=== PATIENT | male | born 1990 | race Caucasian/White ===

== ENCOUNTER 2018-03-30 07:57 | Day surgery (SDC) | payer OTHER ==
[2018-03-30 08:22] VITALS: TEMP 98.5; BMI 16.4
[2018-03-30] MEDS ORDERED: PROPOFOL 20 ML ONE ×2 (08:37)
[2018-03-30 09:10] VITALS: PULSE 54
[2018-03-30 10:05] VITALS: BP 95/66
--- NOTE | 2018-04-03 11:35 | PATH ---
Surgical Pathology Report Patient Name: SHARYN ALVA [facility]. Rec. #: [id number] /Age/Gender: 1990 (Age: 27) / M Account: [id number] Location: U-ENDOSCOPY Taken: 03/30/2018 Received: 03/30/2018 Reported: 04/03/2018 Physicians: Donavan Duffy M.D. Specimen(s) Received A: BX DUODENUM B: BX ANTRUM Clinical History Weight loss, abdominal pain Postoperative diagnosis: Gastritis Final Diagnosis A. DUODENUM, BIOPSY: DUODENAL MUCOSA WITH NO PATHOLOGIC FINDINGS. B. ANTRUM, BIOPSY: MILD CHRONIC GASTRITIS. IMMUNOSTAIN IS NEGATIVE FOR H. PYLORI ORGANISMS. Electronically Signed Ladan Wang M.D. Gross Description A. Received in formalin, labeled "duodenum" are 2 alan, irregular portions of soft tissue averaging 0.4 cm. in greatest dimension. The specimens are submitted in toto in one cassette. B. Received in formalin, labeled "antrum" are 2 alan, irregular portions of soft tissue measuring 0.3 and 0.4 cm. in greatest dimension. The specimens are submitted in toto in one cassette. DL03/30/2018 saudi03/30/2018
== END 2018-03-30 09:45 | disposition home or self-care (01) ==
LOC: FASU-ENDO 07:57
PROVIDERS: ATTEND Internal Medicine Gastroenterology
PROC: 0DB68ZX Excision of Stomach, Via Natural or Artificial Opening Endoscopic, Diagnostic (ICD-10-PCS; 2018-03-30)
PROC: 0DB98ZX Excision of Duodenum, Via Natural or Artificial Opening Endoscopic, Diagnostic (ICD-10-PCS; principal; 2018-03-30 08:41)
DX: K29.50 Unspecified chronic gastritis without bleeding (principal); R10.13 Epigastric pain; R63.4 Abnormal weight loss
CPT/HCPCS: 88305-TC; 88342-TC

== ENCOUNTER 2021-01-26 06:24 | Day surgery (SDC) | payer OTHER ==
[2021-01-23 10:27] VITALS: BMI 22.4
[2021-01-26] MEDS ORDERED: OXYMETAZOLINE 0.05% NASAL SOLUTION 15 ML BOTTLE NS ONE (07:16)
[2021-01-26] MEDS ORDERED: BACITRACIN 15 GM TUBE TOPICAL OINTMENT ONE (07:17)
[2021-01-26] MEDS ORDERED: NITROGLYCERIN 2% OINTMENT - 1GM PACKET TD ONE (07:17)
[2021-01-26] MEDS ORDERED: LIDOCAINE 1%/EPI 1:100000 (20 ML MULTI DOSE VIAL) ONE (07:19)
[2021-01-26] MEDS ORDERED: MIDAZOLAM HCL 2 MG/2 ML SINGLE DOSE VIAL ONE ×2 (07:57)
[2021-01-26] MEDS ORDERED: PROPOFOL 20 ML ONE ×2 (07:58→11:53)
[2021-01-26] MEDS ORDERED: ROCURONIUM BROMIDE 50 MG/5 ML SYRINGE ONE ×2 (07:58→09:37)
[2021-01-26] MEDS ORDERED: NEOSTIGMINE METHYLSULFATE 0.5 MG/1 ML - 10 ML MDV ONE (11:56)
[2021-01-26] MEDS ORDERED: oxyCODONE HCL 5 MG TABLET PO PRN ×3 (12:14→12:16)
[2021-01-26] MEDS ORDERED: ONDANSETRON 4 MG/2 ML VIAL IVPUSH PRN (12:14)
[2021-01-26] MEDS ORDERED: LACTATED RINGERS SOLUTION 1,000 ML IV SCH ×2 (12:15→12:30)
[2021-01-26] MEDS ORDERED: ONDANSETRON 4 MG/2 ML VIAL IVPB PRN (12:16)
[2021-01-26] MEDS ORDERED: oxyCODONE HCL 5 MG TABLET ONE (13:13)
[2021-01-26 14:44] VITALS: BP 132/82; PULSE 98; TEMP 98.9
== END 2021-01-26 14:43 | disposition home or self-care (01) ==
LOC: FASU 06:24
PROVIDERS: ATTEND Plastic Surgery
PROC: 09U Ear, Nose, Sinus, Supplement (ICD-10-PCS; principal; 2021-01-26 09:03)
DX: J34.2 Deviated nasal septum (principal); J34.89 Other specified disorders of nose and nasal sinuses
CPT/HCPCS: 94760

== ENCOUNTER 2021-05-22 18:15 | Emergency (ER) | payer OTHER ==
[2021-05-22 18:27] VITALS: BP 114/76; PULSE 87; TEMP 98.7; BMI 24.1
== END 2021-05-22 21:27 | disposition home or self-care (01) ==
LOC: FER 18:15
DX: K59.00 Constipation, unspecified (principal)
CPT/HCPCS: 74176-TC; 81003; 87086; 99284-25